=== PATIENT | female | born 1995 | race Caucasian/White ===

== ENCOUNTER → 2017-04-01 | Outpatient (CLI) | payer OTHER | LOC: US 14:30 | DX: E04.1 Nontoxic single thyroid nodule (principal); R00.0 Tachycardia, unspecified; E07.89 Other specified disorders of thyroid | CPT/HCPCS: 76536 ==

== ENCOUNTER → 2022-04-01 | Outpatient (CLI) | payer OTHER | LOC: MRI 15:00 → EMI 15:30 → MRI 15:35 → EMI 04-10 09:00 | DX: H53.2 Diplopia (principal) | CPT/HCPCS: 70553; A9577 ==